=== PATIENT | female | born 1995 | race Two or more races ===

== ENCOUNTER 2019-03-02 13:36 | Emergency (ER) | payer OTHER ==
[~2019-03-02] VITALS: Ht 167.6 cm; Wt 102.5 kg
--- NOTE | 2019-03-02 14:00 | NUR ---
ED Nurse Note: Patient walked into ED and reports that she is 37 weeks , has decreased movement since saturday. patient reports . patient is alert awake x4 ambulatory breathing even and unlabored.
--- NOTE | 2019-03-02 14:02 | Emergency Room Report ---
History of Present Illness General Chief Complaint: Complications Source: Patient Present Illness HPI 23-year-old female G2, P1, 8 weeks prior months , patient with reduced movement x3 days, no fevers no chills, no chest pain, no abdominal pain, no abdominal cramps, severity is mild, no aggravating or alleviating factors, no competing symptoms, patient was told by her OB to come into the hospital for evaluation. Blood type is O+ Allergies: Coded Allergies: No Known Allergies (Unverified , 03/02/19) Patient History Past Medical History: see triage record Last Menstrual Period: 06/23 Now: Yes : 2 Para: 1 Reviewed Nursing Documentation: PMH: Agreed; PSxH: Agreed Nursing Documentation-PMH Past Medical History: No Stated History Review of Systems Constitutional: Denies: chills, fever Eye: Denies: blurred vision, double vision ENT: Denies: throat pain, nasal discharge Respiratory: Denies: cough, shortness of breath Cardiovascular: Denies: chest pain, palpitations Gastrointestinal: Denies: abdominal pain, diarrhea, nausea, vomiting Genitourinary: Denies: dysuria, pain Musculoskeletal: Denies: back pain, muscle pain Skin: Denies: rash, lesions Neurological: Denies: headache, focal weakness Hematologic/Lymphatic: Denies: easy bleeding, easy bruising All Other Systems: negative except mentioned in HPI Physical Exam Vital Signs Date Time Temp Pulse Resp B/P (MAP) Pulse Ox O2 Delivery O2 Flow Rate FiO2 03/02/19 13:50 98.6 119 18 160/89 (112) 98 Room Air Sp02 EP Interpretation: reviewed, normal General Appearance: well appearing, no apparent distress, alert Head: normocephalic, atraumatic Eyes: bilateral eye PERRL, bilateral eye EOMI ENT: uvula midline, moist mucus membranes Neck: supple, thyroid normal, supple/symm/no masses Respiratory: lungs clear, no respiratory distress, no retraction, no accessory muscle use Cardiovascular #1: normal peripheral pulses, regular rate, rhythm, no edema, no gallop, no murmur Gastrointestinal: non tender, soft - Gravid abdomen, no guarding, no rebound Musculoskeletal: normal inspection Neurologic: alert, oriented x3 Psychiatric: mood/affect normal Skin: no rash, warm/dry Medical Decision Making Diagnostic Impression: Primary Impression: Complication of Additional Impressions: Decreased movement during UTI (urinary tract infection) ER Course 23-year-old female presents with reduced movement x3 days, patient was offered admission and transfer to [facility], patient wants to follow-up with her OB where her OB has privileges, patient counseled, joint decision-making was made with patient and family she will be discharged and will follow-up with her OB Laboratory Tests Test 03/02/19 14:10 White Blood Count 8.6 K/UL (4.8-10.8) Red Blood Count 4.81 M/UL (4.20-5.40) Hemoglobin 12.8 G/DL (12.0-16.0) Hematocrit 39.8 % (37.0-47.0) Mean Corpuscular Volume 83 FL (80-99) Mean Corpuscular Hemoglobin 26.6 PG (27.0-31.0) L Mean Corpuscular Hemoglobin Concent 32.2 G/DL (32.0-36.0) Red Cell Distribution Width 13.2 % (11.6-14.8) Platelet Count 298 K/UL (150-450) Mean Platelet Volume 10.4 FL (6.5-10.1) H Neutrophils (%) (Auto) 58.5 % (45.0-75.0) Lymphocytes (%) (Auto) 32.0 % (20.0-45.0) Monocytes (%) (Auto) 7.5 % (1.0-10.0) Eosinophils (%) (Auto) 1.2 % (0.0-3.0) Basophils (%) (Auto) 0.8 % (0.0-2.0) Urine Color Yellow Urine Appearance Slightly cloudy Urine pH 6 (4.5-8.0) Urine Specific [place] 1.020 (1.005-1.035) Urine Protein 1+ (NEGATIVE) H Urine Glucose (UA) Negative (NEGATIVE) Urine Ketones Negative (NEGATIVE) Urine Blood Negative (NEGATIVE) Urine Nitrite Positive (NEGATIVE) H Urine Bilirubin Negative (NEGATIVE) Urine Urobilinogen Normal MG/DL (0.0-1.0) Urine Leukocyte Esterase 1+ (NEGATIVE) H Urine RBC 0 /HPF (0 - 2) Urine WBC 2-4 /HPF (0 - 2) Urine Squamous Epithelial Cells Few /LPF (NONE/OCC) Urine Bacteria Many /HPF (NONE) H Sodium Level 139 MMOL/L (136-145) Potassium Level 3.7 MMOL/L (3.5-5.1) Chloride Level 108 MMOL/L (98-107) H Carbon Dioxide Level 20 MMOL/L (21-32) L Anion Gap 11 mmol/L (5-15) Blood Urea Nitrogen 5 mg/dL (7-18) L Creatinine 0.7 MG/DL (0.55-1.30) Estimate Glomerular Filtration Rate > 60 mL/min (>60) Glucose Level 99 MG/DL (74-106) Calcium Level 8.7 MG/DL (8.5-10.1) Total Bilirubin 0.5 MG/DL (0.2-1.0) Aspartate Amino Transferase (AST) 20 U/L (15-37) Alanine Aminotransferase (ALT) 13 U/L (12-78) Alkaline Phosphatase 204 U/L (46-116) H Total Protein 7.2 G/DL (6.4-8.2) Albumin 2.5 G/DL (3.4-5.0) L Globulin 4.7 g/dL Albumin/Globulin Ratio 0.5 (1.0-2.7) L Lipase 186 U/L (73-393) Human Chorionic Gonadotropin, Quant 8782 mIU/mL (1-6) H CT/MRI/US Diagnostic Results CT/MRI/US Diagnostic Results : Impression Ultrasound OB, heart rate 152, motion noted, cervix closed, single IUP 37 weeks, Last Vital Signs Date Time Temp Pulse Resp B/P (MAP) Pulse Ox O2 Delivery O2 Flow Rate FiO2 03/02/19 13:50 98.6 119 18 160/89 (112) 98 Room Air Disposition: HOME, SELF-CARE Condition: Stable Scripts Cephalexin* (CEPHALEXIN*) 500 Mg Tablet 500 MG ORAL EVERY 6 HOURS, #40 CAP Prov: Haider Moore MD 03/02/19 Referrals: [facility] Patient Instructions: Abdominal Pain During , [id number], and Urinary Tract Infection Additional Instructions: The patient was provided with discharge instructions, notified to follow-up with a primary care doctor and or specialist in the next 24-48 hours, and to return to the ED if they have worsening of their symptoms. Please note that this report is being documented using Performance Indicator technology. This can lead to erroneous entry secondary to incorrect interpretation by the dictating instrument. The ultrasound shows a single IUP, 37 weeks 4 days, by BPD, heart rate 146 , cervix closed, motion noted. Please follow-up with your current OB as soon as possible. Haider Moore MD Mar 02, 2019 14:02
--- NOTE | 2019-03-02 14:20 | NUR ---
ED Nurse Note: monitor done, HR 135. RN Glory by the bedside as well.
--- NOTE | 2019-03-02 14:29 | NUR ---
ED Nurse Note: blood /UA sent to lab
--- NOTE | 2019-03-02 14:38 | NUR ---
ED Nurse Note: patient is taken to U/S
[2019-03-02 14:40] LABS: BASOPHILS % (AUTO) 0.8 % (0.0-2.0); EOSINOPHILS % (AUTO) 1.2 % (0.0-3.0); HEMATOCRIT 39.8 % (37.0-47.0); HEMOGLOBIN 12.8 G/DL (12.0-16.0); MEAN CORPUSCULAR VOLUME 83 FL (80-99); MONOCYTES % (AUTO) 7.5 % (1.0-10.0); NEUTROPHILS % (AUTO) 58.5 % (45.0-75.0); PLATELET COUNT 298 K/UL (150-450); RED BLOOD COUNT 4.81 M/UL (4.20-5.40); RED CELL DISTRIBUTION WIDTH 13.2 % (11.6-14.8); WHITE BLOOD COUNT 8.6 K/UL (4.8-10.8)
[2019-03-02 14:41] LABS: APPEARANCE,URINE SLIGHTLY CLOUDY; BILIRUBIN, URINE NEGATIVE (NEGATIVE); GLUCOSE, URINE (UA) NEGATIVE (NEGATIVE); KETONES,URINE NEGATIVE (NEGATIVE); LEUKOCYTE ESTERASE ,URINE 1+ (NEGATIVE); NITRITE,URINE POSITIVE (NEGATIVE); PH,URINE 6 (4.5-8.0); PROTEIN,URINE 1+ (NEGATIVE); UROBILINOGEN,URINE NORMAL MG/DL (0.0-1.0)
[2019-03-02 14:43] LABS: COLOR,URINE YELLOW
[2019-03-02 14:55] LABS: ANION GAP 11 mmol/L (5-15); BLOOD UREA NITROGEN 5 mg/dL (7-18); CALCIUM 8.7 MG/DL (8.5-10.1); CARBON DIOXIDE 20 MMOL/L (21-32); CHLORIDE 108 MMOL/L (98-107); CREATININE 0.7 MG/DL (0.55-1.30); POTASSIUM 3.7 MMOL/L (3.5-5.1); SODIUM 139 MMOL/L (136-145)
[2019-03-02 14:59] LABS: ALANINE AMINOTRANSFERASE 13 U/L (12-78); ALBUMIN 2.5 G/DL (3.4-5.0); ALBUMIN/GLOBULIN RATIO 0.5 (1.0-2.7); ALKALINE PHOSPHATASE 204 U/L (46-116); ASPARTATE AMINO TRANSFERASE 20 U/L (15-37); BILIRUBIN,TOTAL 0.5 MG/DL (0.2-1.0)
[2019-03-02] MEDS ORDERED: CEPHALEXIN500 M1 ORAL (15:50)
[2019-03-02] MEDS ORDERED: cefTRIAXone 1 GM in NS 55 ML IVPB ONE (16:00)
[2019-03-02 16:30] VITALS: BP 160/89
--- NOTE | 2019-03-02 16:30 | NUR ---
ER DISCHARGE NOTE: Patient is cleared to be discharged per ER MD DR NORTON , pt is aox4, on room air, with stable vital signs. pt was given dc and prescription instructions, pt was able to verbalize understanding, pt id band and iv site removed without complications. pt is able to ambulate with steady gait. pt took all belongings, left with her family
--- NOTE | 2019-03-02 17:11 | Diagnostic Imaging Report ---
Indication: Abdominal pain, patient PAIN Technique: Transabdominal only images of the uterus and fetus Comparison: none Findings: There is a single live intrauterine . This demonstrates positive heart activity, heart rate 179 bpm. It demonstrates cephalic presentation. Amniotic fluid volume is decreased. The placenta is anterior, fundal, clears the internal cervical os. The endocervical canal is closed, measures 4.6 cm in length. Per technologist, activity is decreased measurements as follows: Biparietal diameter 9.2 cm, 37 weeks 4 days; head circumference 31.6 cm, 35 weeks 2 days; abdominal circumference 33.1 cm, 37 weeks zero days; femur length 6.5 cm, 33 weeks 2 days. Estimated gestational age by average ultrasound measurements is 35 weeks 5 days. Estimated date of delivery 04/02/2019 Limited assessment of anatomy, due to the emergent nature of the exam. No gross abnormality demonstrated. Normal stomach and kidneys are demonstrated. Impression: 35 week 5 day, by average of ultrasound measurements, single live intrauterine . Oligohydramnios, nonspecific as regards etiology Diminished motion observed by the technologist Findings discussed by phone with Dr. Moore at the time of interpretation
== END 2019-03-02 16:30 | disposition home or self-care (01) ==
LOC: EMR 14:10
DX: O36.8130 Decreased fetal movements, third trimester, not applicable or unspecified (principal); O23.43 Unspecified infection of urinary tract in pregnancy, third trimester; Z3A.37 37 weeks gestation of pregnancy
CPT/HCPCS: 36415; 76805; 80053; 81003; 83690; 84702; 85025; 86850; 86900; 86901; 87086; 96361; 96365; 99284; J0696